=== PATIENT | female | born 1960 | race Caucasian/White ===

== ENCOUNTER 2020-10-09 08:11 | Day surgery (SDC) | payer SELFPAY ==
[~2020-10-09] VITALS: Ht 157.5 cm; Wt 65.8 kg
[~2020-10-09 08:11] MED LIST: LEVOTHYROXIN75 MC1 PO
[2020-10-09 11:12] VITALS: BP 131/75
--- NOTE | 2020-10-10 08:59 | NUR ---
PER PHYSICIAN, NOTIFIED PATIENT OF COLONOSCOPY RESULTS AND RECOMMENDATIONS, SEE PHYSICIAN NOTE 10/09/20. RECOMMENDATIONS; COLONOSCOPY IN 5 YEARS, HIGH FIBER DIET. PATIENT VERBALIZED UNDERSTANDING AND AGREED TO INFORMATION PROVIDED. VERBALIZED NO CONCERNS AT TIME OF CALL. ENDOSCOPY REPORT FORWARDED TO PRIMARY CARE FOR CONTINUITY OF CARE.
== END 2020-10-09 11:21 | disposition home or self-care (01) | DRG 951 ==
LOC: ENDO 08:11 → ORM 11:15 → ENDO 11:20
PROVIDERS: ATTEND Surgery
PROC: 0DJD8ZZ Inspection of Lower Intestinal Tract, Via Natural or Artificial Opening Endoscopic (ICD-10-PCS; principal; 2020-10-09)
DX: Z12.11 Encounter for screening for malignant neoplasm of colon (principal); K57.30 Diverticulosis of large intestine without perforation or abscess without bleeding; Z86.010 Personal history of colon polyps; Z80.0 Family history of malignant neoplasm of digestive organs; Z20.828 Contact with and (suspected) exposure to other viral communicable diseases